=== PATIENT | male | born 1955 | race Caucasian/White ===

== ENCOUNTER 2016-10-30 11:24 | Emergency (ER) | payer MEDICARE, OTHER ==
[2016-10-30 12:32] LABS: HEMOGLOBIN 12.5 gm/dl (14.0-17.5); RED BLOOD COUNT 4.09 M/UL (4.20-5.50); WHITE BLOOD COUNT 4.8 K/UL (4.5-11.0)
[2016-10-30 12:55] LABS: BUN/CREATININE RATIO 15 (0-10)
== END 2016-10-30 15:02 | disposition home or self-care (01) ==
LOC: ER1 11:24
PROVIDERS: Radiology Radiation Oncology
DX: R10.13 Epigastric pain (principal)
CPT/HCPCS: 36415; 74022; 80053; 82150; 82550; 82553; 83690; 83874; 84484; 85025; 93005; 96374; 96375; 99284; J2405